=== PATIENT | male | born 1965 | race Two or more races ===

== ENCOUNTER 2017-04-29 14:40 | Emergency (ER) | payer OTHER ==
[~2017-04-29] VITALS: Ht 180.3 cm; Wt 99.8 kg
[2017-04-29 15:07] VITALS: BP 132/82
[2017-04-30] MEDS ORDERED: NEOMYCIN-BACITRACIN-POLYM UNITDOSE PKG TOP OINT TOP ONE (02:45)
[2017-04-30] MEDS ORDERED: TETANUS-DIPTH-ACEL PERTUSSIS 0.5ML SYRG IM ONE (03:00)
== END 2017-04-30 03:35 | disposition home or self-care (01) ==
LOC: ER 14:40
DX: S61.216A Laceration without foreign body of right little finger without damage to nail, initial encounter (principal); S60.051A Contusion of right little finger without damage to nail, initial encounter; Z23 Encounter for immunization; W45.8XXA Other foreign body or object entering through skin, initial encounter; Y93.89 Activity, other specified; Y99.8 Other external cause status; Y92.69 Other specified industrial and construction area as the place of occurrence of the external cause
CPT/HCPCS: 12002; 73140; 90471; 90715

== ENCOUNTER 2018-11-09 12:31 | Emergency (ER) | payer OTHER ==
[~2018-11-09] VITALS: Ht 180.3 cm; Wt 98.0 kg
[2018-11-09 13:04] VITALS: BP 127/82
[2018-11-09] MEDS ORDERED: LIDOCAINE W/ EPINEPHRINE 1 % INJ 30ML ONE (13:13)
[2018-11-09] MEDS ORDERED: LIDOCAINE 1% HCL (LOCAL ANESTH.) INJ 20ML MDV ONE (13:14)
[2018-11-09] MEDS ORDERED: TETANUS-DIPTH-ACEL PERTUSSIS 0.5ML SYRG IM ONE (13:15)
[2018-11-09] MEDS ORDERED: LIDOCAINE 1% HCL (LOCAL ANESTH.) INJ 20ML MDV ID ONE (14:00)
== END 2018-11-09 15:56 | disposition home or self-care (01) ==
LOC: ER 12:37
DX: S61.412A Laceration without foreign body of left hand, initial encounter (principal); W26.9XXA Contact with unspecified sharp object(s), initial encounter; Y93.89 Activity, other specified; Y99.0 Civilian activity done for income or pay; Y92.69 Other specified industrial and construction area as the place of occurrence of the external cause
CPT/HCPCS: 12001; 73130; 90471; 90715; 99283; J2001